=== PATIENT | male | born 1985 | race Two or more races ===

== ENCOUNTER 2020-04-06 20:04 | Emergency (ER) | payer BC ==
[2020-04-06] MEDS ORDERED: Amoxicillin 500 MG Cap PO ONE (20:54)
[2020-04-06 20:58] LABS: BLOOD UREA NITROGEN,BUN 13 mg/dL (7.0-18.0); CARBON DIOXIDE,CO2 29.6 mmol/L (21.0-32.0); CHLORIDE,CL 103 mmol/L (98-107); GLUCOSE RANDOM 86 mg/dL (74-106); POTASSIUM,K 3.8 mmol/L (3.5-5.1); SODIUM,NA 142 mmol/L (136-148)
--- NOTE | 2020-04-06 21:02 | EDM.PDOC ---
ED HPI GENERAL MEDICAL PROBLEM - General Chief Complaint: Gastrointestinal Problem Stated Complaint: SICK/abdpain/vomiting blood Time Seen by Provider: 04/06/20 20:13 - History of Present Illness INITIAL COMMENTS - FREE TEXT/NARRATIVE: CHIEF COMPLAINT(S): Abdominal pain HISTORY OF PRESENT ILLNESS: This is a 35-year-old man without any significant past medical history who comes to the emergency department with a chief complai nt of abdominal pain. The patient is Icelandic-speaking however is able to speak Turkish and patient's girlfriend is at bedside. Patient states that off and on for approximately 1-1/2 years he has been experiencing abdominal pain located in the right lower quadrant which he describes as sharp. He states that the pain is worse after eating spicy red food or greasy food and feels like he gets bloat ed. He states that he is also experiencing reflux symptoms in his throat which he describes as burning. He denies any chest pain or shortness of breath. He denies any diaphoresis. He rates his pain currently is 0 out of 10 but when it happens its approximately 5 out of 10. He states that he did have one episode of vomiting this morning during brushing his teeth and he had streaks of red blood in it. He denies any latisha hematemesis, hemoptysis, hematochezia, melena. He states that he has not had any vomiting since that time. He states that he has been able to tolerate p.o. Of note: He states that he had a endoscopy and [place] and never found out the results. They did call the primary care physician here in [place] today and they did get the records from [place] which showed that the patient had H. pylori. He states that he was never treated for this. He denies any other symptoms. REVIEW OF SYSTEMS: Constitutional: Denies fever, chills. Eyes: Denies eye pain Ears, Nose, Mouth, & Throat: Denies earache Cardiovascular: Denies chest pain Respiratory: Denies shortness of breath Gastrointestinal: Positive for intermittent right lower quadrant abdominal pain, one episode of vomiting. Denies hematochezia, hematemesis, bilious emesis, melena Genitourinary: Denies hematuria Skin:Denies a rash Neurological: Denies blurred vision Psychiatric: Denies depression PAST MEDICAL HISTORY: As per history of present illness and as reviewed below otherwise noncontributory. SURGICAL HISTORY: As per history of present illness and as reviewed below otherwise noncontributory. SOCIAL HISTORY: As per history of present illness and as reviewed below otherwise noncontributory. FAMILY HISTORY: As per history of present illness and as reviewed below otherwise noncontributory. EXAMINATION OF ORGAN SYSTEMS/BODY AREAS: Constitutional: Blood pressure was 159/76, heart rate 104, respiratory rate 16 with an oxygen saturation 98% on room air. Temperature 35.7 General: Overall well-appearing man who is in no acute distress Psychiatric: Appropriate mood and affect. Eyes: No scleral icterus or conjunctival erythema conjunctiva has not pale ENMT: Moist mucous membranes. No pharyngeal erythema mucous membranes are not pale. Cardiovascular: Regular, rate, and rythym. No gallops, murmurs, or rubs. Bilateral upper extremity pulses symmetric and intact. No peripheral edema. No JVD. Respiratory: Lungs clear to auscultation bilaterally. No wheezes, rales, or rhonchi. Gastrointestinal: Soft, nondistended, minimal tenderness in the left lower quadrant and right lower quadrant. No rebound or guarding. Normoactive bowel sounds Genitourinary: No suprapubic tenderness Musculoskeletal: Normal range of motion. Skin: No lesions or abrasions. Neurological: Alert, GCS 15 MEDICAL DECISION MAKING AND COURSE IN THE ED WITH INTERPRETATION/REVIEW OF DIAGNOSTIC STUDIES: This is a 35-year-old man who was evaluated approximately 1 to 1-1/2 years ago with endoscopy showing H. pylori who is untreated who comes to the emergency department with one episode of vomiting with streaks of red blood with an examination revealing right lower quadrant and left lower quadrant minimal tenderness who is mildly tachycardic but overall appears well. At this time the location of his pain does not seem congruent with peptic ulcer disease or H. pylori. Patient denied any melena or hematochezia and no latisha hematemesis. We will obtain a CT abdomen pelvis to evaluate for appendicitis versus diverticulitis versus diverticulosis. Will obtain basic labs including CBC and CMP. At this time the patient does not report any nausea or pain therefore no medications be administered. We will reevaluate the patient's heart rate. Will encourage p.o. intake. Laboratory: CBC is unremarkable. CMP is unremarkable. The radiological images were viewed by myself along with reading the report from the radiologist. CT abdomen pelvis with IV contrast does not reveal any acute intra-abdominal pathology. There is an incidental 4 mm nodule in the anterior right lobe likely due to intrapulmonary lymph node given the patient's age. After labs and imaging I did discuss with his and patient at bedside regarding our work-up. I did discuss the incidental finding of the pulmonary nodule. I did discuss with him that I had be prescribing treatment for H. pylori and that they needed to complete the 2-week course. I discussed with him that if he were to have worsening abdominal pain, development of blood in stool, or vomiting blood he should return to the emergency department. He was amenable to discharge at this time and had no further questions DISPOSITION: The patient was discharged home in stable condition. The patient will follow up with PCP within 1 week CONDITION: Fair PROCEDURES: None FINAL IMPRESSION(S)/DIAGNOSES: 1. Acute abdominal pain, unknown etiology 2. H. pylori E infection per history 3. Incidental pulmonary nodule Toño Law M.D. Right Middle Abdomen Pain Score (Numeric/FACES): 4 - Related Data Allergies Allergy/AdvReac Type Severity Reaction Status Date / Time No Known Allergies Allergy Verified 04/06/20 20:29 Home Meds: Home Meds Amoxicillin 1,000 mg PO BID 14 Days #56 tab 04/06/20 [Rx] Clarithromycin 500 mg PO BID 14 Days #28 tablet 04/06/20 [Rx] Esomeprazole Magnesium [Nexium 24Hr] 20 mg PO DAILY 04/06/20 [History] Esomeprazole [NexIUM] 40 mg PO BID 14 Days #28 packet 04/06/20 [Rx] Past Medical History Endocrine/Metabolic History: Reports: Diabetes, Type I, Obesity/BMI 30+ Social & Family History - Family History Family Medical History: Noncontributory - Tobacco Use Tobacco Use Status *Q: Never Tobacco User Second Hand Smoke Exposure: No - Recreational Drug Use Recreational Drug Use: No ED ROS GENERAL - Review of Systems Review Of Systems: See Below ED EXAM, GENERAL - Physical Exam Exam: See Below Course - Vital Signs Last Recorded V/S: Last Vital Signs Temp 35.7 C L 04/06/20 20:25 Pulse 79 04/06/20 22:04 Resp 18 04/06/20 22:04 BP 128/86 04/06/20 22:04 Pulse Ox 96 04/06/20 22:04 - Orders/Labs/Meds Labs: Laboratory Tests 04/06/20 04/06/20 Range/Units 20:20 20:30 WBC 10.32 (4.0-11.0) K/uL RBC 5.51 (4.50-5.90) M/uL Hgb 16.9 (13.0-17.0) g/dL Hct 49.3 (38.0-50.0) % MCV 89.5 (80.0-98.0) fL MCH 30.7 (27.0-32.0) pg MCHC 34.3 (31.0-37.0) g/dL RDW Std Deviation 43.7 (28.0-62.0) fl RDW Coeff of Mabel 13 (11.0-15.0) % Plt Count 324 (150-400) K/uL MPV 10.00 (7.40-12.00) fL Neut % (Auto) 44.6 L (48.0-80.0) % Lymph % (Auto) 40.6 H (16.0-40.0) % Harrison % (Auto) 5.9 (0.0-15.0) % Eos % (Auto) 8.5 H (0.0-7.0) % Baso % (Auto) 0.4 (0.0-1.5) % Neut # (Auto) 4.6 (1.4-5.7) K/uL Lymph # (Auto) 4.2 H (0.6-2.4) K/uL Harrison # (Auto) 0.6 (0.0-0.8) K/uL Eos # (Auto) 0.9 H (0.0-0.7) K/uL Baso # (Auto) 0.0 (0.0-0.1) K/uL Nucleated RBC % 0.0 /100WBC Nucleated RBCs # 0 K/uL Sodium 142 (136-148) mmol/L Potassium 3.8 (3.5-5.1) mmol/L Chloride 103 (98-107) mmol/L Carbon Dioxide 29.6 (21.0-32.0) mmol/L BUN 13 (7.0-18.0) mg/dL Creatinine 1.1 (0.8-1.3) mg/dL Est Cr Clr Drug Dosing 89.30 mL/min Estimated GFR (MDRD) > 60.0 ml/min Glucose 86 (74-106) mg/dL Calcium 9.1 (8.5-10.1) mg/dL Total Bilirubin 0.8 (0.2-1.0) mg/dL AST 21 (15-37) IU/L ALT 63 (14-63) IU/L Alkaline Phosphatase 85 (46-116) U/L Total Protein 7.9 (6.4-8.2) g/dL Albumin 4.4 (3.4-5.0) g/dL Globulin 3.5 (2.6-4.0) g/dL Albumin/Globulin Ratio 1.3 (0.9-1.6) Meds: Medications Discontinued Medications Generic Name Dose Route Start Last Admin Trade Name Freq PRN Reason Stop Dose Admin Amoxicillin 1,000 mg 04/06/20 20:54 04/06/20 21:43 Amoxil PO 04/06/20 20:55 1,000 mg ONETIME ONE Administration Clarithromycin 500 mg 04/06/20 20:55 04/06/20 21:43 Biaxin PO 04/06/20 20:56 500 mg ONETIME STA Administration Iopamidol 100 ml 04/06/20 21:30 04/06/20 21:31 Isovue-370 (76%) IVPUSH 04/06/20 21:31 100 ml ONETIME STA Administration Departure - Departure Time of Disposition: 22:44 Disposition: Home, Self-Care 01 Condition: Fair Clinical Impression: Pulmonary nodule, H. pylori infection - Discharge Information *PRESCRIPTION DRUG MONITORING PROGRAM REVIEWED*: No *COPY OF PRESCRIPTION DRUG MONITORING REPORT IN PATIENT JORGE LUIS: No Prescriptions: Amoxicillin 1,000 mg PO BID 14 Days #56 tab Clarithromycin 500 mg PO BID 14 Days #28 tablet Esomeprazole [NexIUM] 40 mg PO BID 14 Days #28 packet Instructions: Helicobacter Pylori Infection, Antibiotic Medicine, Adult, Pulmonary Nodule, [id number] Referrals: Xander Hoffmann MD [Primary Care Provider] - Forms: ED Department Discharge Additional Instructions: The patient is informed of any results of their evaluation and diagnostic workup and all questions are answered. They are given discharge instructions and return precautions. The patient is stable for discharge. The patient states they understand and agree with the plan and that they will return if their symptoms get worse or if they have any new concerns. The following information is given to patients seen in the emergency department who are being discharged to home. This information is to outline your options for follow-up care. We provide all patients seen in our emergency department with a follow-up referral. The need for follow-up, as well as the timing and circumstances, are variable depending upon the specifics of your emergency department visit. If you don't have a primary care physician on staff, we will provide you with a referral. We always advise you to contact your personal physician following an emergency department visit to inform them of the circumstance of the visit and for follow-up with them and/or the need for any referrals to a consulting specialist. The emergency department will also refer you to a specialist when appropriate. This referral assures that you have the opportunity for follow-up care with a specialist. All of these measure are taken in an effort to provide you with optimal care, which includes your follow-up. Under all circumstances we always encourage you to contact your private physician who remains a resource for coordinating your care. When calling for follow-up care, please make the office aware that this follow-up is from your recent emergency room visit. If for any reason you are refused follow-up, please contact the [facility] Emergency Department at and asked to speak to the emergency department charge nurse. PLEASE COMPLETE ALL MEDICATIONS FOR H. PYLORI. IT IS A TWO WEEK COURSE. Amoxicillin 1000mg (2 Tablets) two times a day Clarithromycin 500mg (1 Tablet) two times a day Esomeprazole (Nexium) (1 packet) two times a day YOU WILL NEED TO BE RETESTED AFTER COMPLETING ALL THE ANTIBIOTICS, PLEASE FOLLOW UP WITH YOU DOCTOR ON YOUR CAT SCAN THERE WAS A 4mm RIGHT LUNG NODULE. YOU WILL NEED TO FOLLOW UP WITH YOUR DOCTOR REGARDING THIS FINDING SO THAT IT CAN BE MONITORED RETURN TO EMERGENCY DEPARTMENT IF YOU HAVE WORSENING ABDOMINAL PAIN, BLOOD IN YOUR STOOL (RED/BLACK LIKE TAR), OR VOMITING BLOOD (RED/BLACK LIKE COFFEE GROUNDS) Sepsis Event Note (ED) - Evaluation Sepsis Screening Result: No Definite Risk - Focused Exam Vital Signs: Vital Signs Temp Pulse Resp BP Pulse Ox 04/06/20 22:04 79 18 128/86 96 04/06/20 21:54 89 18 136/85 99 04/06/20 20:25 35.7 C L 104 H 16 159/76 H 98
[2020-04-06] MEDS ORDERED: Iopamidol 755 Mg/ML 100 ML Bottle IVPUSH STA (21:30)
--- NOTE | 2020-04-06 22:26 | CT ---
INDICATION: Right lower quadrant, left lower quadrant pain TECHNIQUE: CT Abdomen and pelvis with i.v. contrast. Coronal and sagittal reformats were obtained. CONTRAST: 100 mL Isovue 370 COMPARISON: None FINDINGS: Lower chest: There is a 4 mm nodule in anterior right lower lobe, abutting the major fissure on image 9. This is likely due to an intrapulmonary lymph node given the patient`s age. Liver: Unremarkable. Spleen: Unremarkable. Pancreas: Unremarkable. Gallbladder: Unremarkable. Kidney: Unremarkable. No kidney or ureteral stones or obstruction seen. Adrenal: Unremarkable. Bowel: Unremarkable. The appendix is normal in appearance and size. 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 Lymph: See above. Peritoneum: Unremarkable. No pneumoperitoneum is seen. No significant ascites is noted. Pelvis: Unremarkable. Soft tissue: Unremarkable. Bone: Unremarkable for age. IMPRESSION: 1. Unremarkable with no CT correlate for the patient`s symptoms seen. Dictated by Andrew Poe MD @ 04/06/2020 10:25:18 PM Please note that all CT scans at this facility use dose modulation, iterative reconstruction, and/or weight-based dosing when appropriate to reduce radiation dose to as low as reasonably achievable. Dictated by: Andrew Poe MD @ 04/06/2020 22:25:21 (Electronically Signed)
== END 2020-04-06 23:05 | disposition home or self-care (01) ==
LOC: MW.ED 20:04
DX: A04.8 Other specified bacterial intestinal infections (principal); R91.1 Solitary pulmonary nodule; R00.0 Tachycardia, unspecified; E10.9 Type 1 diabetes mellitus without complications; E66.9 Obesity, unspecified; Z68.32 Body mass index [BMI] 32.0-32.9, adult; Z79.899 Other long term (current) drug therapy
CPT/HCPCS: 36415; 74177; 80053; 85025; 99284; A9270; Q9967

== ENCOUNTER 2021-02-08 20:46 | Emergency (ER) | payer BC ==
[2021-02-08] MEDS ORDERED: Pantoprazole 40 MG Tab.CR PO STA (21:12)
[2021-02-08] MEDS ORDERED: Baclofen 10 MG Tab PO ONE (21:13)
--- NOTE | 2021-02-08 21:16 | EDM.PDOC ---
ED HPI GENERAL MEDICAL PROBLEM - General Chief Complaint: General Stated Complaint: HICCUPS FOR 5 DAYS Time Seen by Provider: 02/08/21 20:58 - History of Present Illness INITIAL COMMENTS - FREE TEXT/NARRATIVE: History of present illness: [] This patient is bothered by frequent hiccups throughout the day for 5 days. He is able to sleep. When he wakes up it is worse in the morning. He has been treated in the past with Nexium for gastroesophageal reflux disease. He is otherwise healthy. He is under a lot of stress currently. He does not have any other reason why he would suffer hiccups. He is not taking his Nexium on a regular basis and not even once a day. Review of systems: As per history of present illness and below otherwise all systems reviewed and negative. Past medical history: As per history of present illness and as reviewed below otherwise noncontributory. Surgical history: As per history of present illness and as reviewed below otherwise noncontributory. Social history: No reported history of drug or alcohol abuse. Family history: As per history of present illness and as reviewed below otherwise noncontributory. Physical exam: Constitutional - well developed, well-nourished and in no acute distress HEENT -frequent hiccups-normocephalic, no evidence of trauma - external nose and mouth normal - no mass in neck and no JVD - mucosae moist EYES - full EOM, PERRL, no icterus - no evidence of inflammation, injection, or drainage Respiratory - no respiratory distress, equal bilateral expansion, lungs clear to auscultation and no abnormal lung sounds Cardiovascular - Regular Rhythm with S1 and S2 appreciated and no murmur, gallop or rub. GI - abdomen soft without distension or organomegaly - normal bowel sounds - no guard or rebound Musculoskeletal no gross deformity of long bones or joints - no tenderness, swelling or edema Neurologic - Alert and oriented times four - CN II-XII grossly intact - motor sensory and coordination symmetrically normal Psychiatric - appropriate mood and affect with normal thought content Hematologic - No petechiae or purpura - mucosa appropriate color and sclera not pale - normal nail bed color and refill Integument - no rash or evidence of trauma - normal turgor Diagnostics: [] Therapeutics: [] Impression: [] Plan: [] Definitive disposition and diagnosis as appropriate pending reevaluation and review of above. hiccup Pain Score (Numeric/FACES): 6 - Related Data Allergies Allergy/AdvReac Type Severity Reaction Status Date / Time No Known Allergies Allergy Verified 02/08/21 20:53 Home Meds: Home Meds Esomeprazole [NexIUM] 40 mg PO BID 14 Days #28 packet 04/06/20 [Rx] Baclofen 10 mg PO TID 7 Days #21 tablet 02/08/21 [Rx] Past Medical History - Past Health History Medical/Surgical History: Denies Medical/Surgical History Endocrine/Metabolic History: Reports: Diabetes, Type I, Obesity/BMI 30+ Social & Family History - Family History Family Medical History: No Pertinent Family History - Tobacco Use Tobacco Use Status *Q: Never Tobacco User - Recreational Drug Use Recreational Drug Use: No ED ROS GENERAL - Review of Systems Review Of Systems: Comprehensive ROS is negative, except as noted in HPI. ED EXAM, GENERAL - Physical Exam Exam: See Below Free Text/Narrative:: My physical exam as in the HPI Course - Vital Signs Last Recorded V/S: Last Vital Signs Temp 36.6 C 02/08/21 20:54 Pulse 98 02/08/21 20:54 Resp 18 02/08/21 20:54 BP 152/106 H 02/08/21 20:54 Pulse Ox 97 02/08/21 20:54 - Orders/Labs/Meds Labs: Laboratory Tests 02/08/21 02/08/21 Range/Units 21:37 21:37 WBC 9.41 (4.0-11.0) K/uL RBC 5.10 (4.50-5.90) M/uL Hgb 15.8 (13.0-17.0) g/dL Hct 44.8 (38.0-50.0) % MCV 87.8 (80.0-98.0) fL MCH 31.0 (27.0-32.0) pg MCHC 35.3 (31.0-37.0) g/dL RDW Std Deviation 44.0 (28.0-62.0) fl RDW Coeff of Mabel 14 (11.0-15.0) % Plt Count 329 (150-400) K/uL MPV 9.80 (7.40-12.00) fL Neut % (Auto) 41.8 L (48.0-80.0) % Lymph % (Auto) 47.5 H (16.0-40.0) % Maury % (Auto) 8.2 (0.0-15.0) % Eos % (Auto) 2.1 (0.0-7.0) % Baso % (Auto) 0.4 (0.0-1.5) % Neut # (Auto) 3.9 (1.4-5.7) K/uL Lymph # (Auto) 4.5 H (0.6-2.4) K/uL Maury # (Auto) 0.8 (0.0-0.8) K/uL Eos # (Auto) 0.2 (0.0-0.7) K/uL Baso # (Auto) 0.0 (0.0-0.1) K/uL Nucleated RBC % 0.0 /100WBC Nucleated RBCs # 0 K/uL Sodium 140 (136-148) mmol/L Potassium 3.8 (3.5-5.1) mmol/L Chloride 102 (98-107) mmol/L Carbon Dioxide 28.0 (21.0-32.0) mmol/L BUN 17 (7.0-18.0) mg/dL Creatinine 1.0 (0.8-1.3) mg/dL Est Cr Clr Drug Dosing 100.70 mL/min Estimated GFR (MDRD) > 60.0 ml/min Glucose 89 (74-106) mg/dL Calcium 8.9 (8.5-10.1) mg/dL Magnesium 2.5 H (1.8-2.4) mg/dL Total Bilirubin 0.5 (0.2-1.0) mg/dL AST 23 (15-37) IU/L ALT 66 H (14-63) IU/L Alkaline Phosphatase 83 (46-116) U/L Total Protein 7.4 (6.4-8.2) g/dL Albumin 4.4 (3.4-5.0) g/dL Globulin 3.0 (2.6-4.0) g/dL Albumin/Globulin Ratio 1.5 (0.9-1.6) Lipase 127 (73-393) U/L Meds: Medications Discontinued Medications Generic Name Dose Route Start Last Admin Trade Name Freq PRN Reason Stop Dose Admin Baclofen 10 mg 02/08/21 21:13 02/08/21 21:44 Baclofen 10 Mg Tab PO 02/08/21 21:14 10 mg ONETIME ONE Administration Pantoprazole Sodium 40 mg 02/08/21 21:12 02/08/21 21:23 Pantoprazole 40 Mg Tab.Cr PO 02/08/21 21:13 40 mg STAT STA Administration Departure - Departure Time of Disposition: 22:32 Disposition: Home, Self-Care 01 Condition: Good Clinical Impression: Hiccups - Discharge Information Prescriptions: Baclofen 10 mg PO TID 7 Days #21 tablet Referrals: PCP,None [Primary Care Provider] - Forms: ED Department Discharge Additional Instructions: Make an appointment right away with [facility]. Try sucking on a thick milkshake or gentle massage of her eyes, get rid of your stress, follow-up with family practice if not completely better within 7 days. [facility] [address] [place] [address] [place] [address] The following information is given to patients seen in the emergency department who are being discharged to home. This information is to outline your options for follow-up care. We provide all patients seen in our emergency department with a follow-up referral. The need for follow-up, as well as the timing and circumstances, are variable depending upon the specifics of your emergency department visit. If you don't have a primary care physician on staff, we will provide you with a referral. We always advise you to contact your personal physician following an emergency department visit to inform them of the circumstance of the visit and for follow-up with them and/or the need for any referrals to a consulting specialist. The emergency department will also refer you to a specialist when appropriate. This referral assures that you have the opportunity for follow-up care with a specialist. All of these measure are taken in an effort to provide you with optimal care, which includes your follow-up. Under all circumstances we always encourage you to contact your private physician who remains a resource for coordinating your care. When calling for follow-up care, please make the office aware that this follow-up is from your recent emergency room visit. If for any reason you are refused follow-up, please contact the [facility] Emergency Department at and asked to speak to the emergency department charge nurse. Sepsis Event Note (ED) - Evaluation Sepsis Screening Result: No Definite Risk - Focused Exam Vital Signs: Vital Signs Temp Pulse Resp BP Pulse Ox 02/08/21 20:54 36.6 C 98 18 152/106 H 97
--- NOTE | 2021-02-08 21:43 | CR ---
INDICATION: no prior. 2 images. prolonged hiccups TECHNIQUE: Chest 2 views. COMPARISON: None. FINDINGS: Cardiovascular and mediastinum: Heart size and vasculature are normal in caliber and appearance. Mediastinum is within normal limits. Lungs and pleural spaces: Lungs are clear. No sign of infiltrate or mass. No sign of pleural effusion. No pneumothorax. Bones and soft tissues: No significant findings. IMPRESSION: Unremarkable chest. Dictated by: Fran Holloway MD @ 02/08/2021 21:42:16 (Electronically Signed)
[2021-02-08 22:11] LABS: BLOOD UREA NITROGEN,BUN 17 mg/dL (7.0-18.0); CHLORIDE,CL 102 mmol/L (98-107); GLUCOSE RANDOM 89 mg/dL (74-106); LIPASE 127 U/L (73-393); POTASSIUM,K 3.8 mmol/L (3.5-5.1); SODIUM,NA 140 mmol/L (136-148)
== END 2021-02-08 22:47 | disposition home or self-care (01) ==
LOC: MW.ED 20:46
DX: R06.6 Hiccough (principal); E10.9 Type 1 diabetes mellitus without complications; E66.9 Obesity, unspecified; Z68.38 Body mass index [BMI] 38.0-38.9, adult; Z79.899 Other long term (current) drug therapy
CPT/HCPCS: 36415; 71046; 80053; 83690; 83735; 85025; 99283; A9270

== ENCOUNTER 2021-03-19 20:46 | Emergency (ER) | payer BC ==
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
== END 2021-03-19 23:30 | disposition home or self-care (01) ==
LOC: MW.ED 20:46
DX: S09.90XA Unspecified injury of head, initial encounter (principal); S39.012A Strain of muscle, fascia and tendon of lower back, initial encounter; S16.1XXA Strain of muscle, fascia and tendon at neck level, initial encounter; K21.9 Gastro-esophageal reflux disease without esophagitis; E10.9 Type 1 diabetes mellitus without complications; E66.9 Obesity, unspecified; Z68.32 Body mass index [BMI] 32.0-32.9, adult; Z79.899 Other long term (current) drug therapy; W22.8XXA Striking against or struck by other objects, initial encounter
CPT/HCPCS: 70450; 70450-26; 72125; 72125-26; 99283-25

== ENCOUNTER 2021-06-12 09:53 | Emergency (ER) | payer BC ==
--- NOTE | 2021-06-12 10:40 | EDM.PDOC ---
ED HPI GENERAL MEDICAL PROBLEM - General Chief Complaint: ENT Problem Stated Complaint: UNSURE Time Seen by Provider: 06/12/21 09:55 Source of Information: Reports: Patient History Limitations: Reports: No Limitations - History of Present Illness INITIAL COMMENTS - FREE TEXT/NARRATIVE: Patient is a 36-year-old male no past medical history presents today for throat pain. Patient son tested positive for strep throat and he is here with the other family members as well for similar symptoms. Is able to eat swallow and drink has no shortness of breath cough or other complaints. Throat Pain Score (Numeric/FACES): 4 - Related Data Allergies Allergy/AdvReac Type Severity Reaction Status Date / Time No Known Allergies Allergy Verified 06/12/21 10:22 Home Meds: Home Meds Esomeprazole [NexIUM] 40 mg PO BID 14 Days #28 packet 04/06/20 [Rx] Past Medical History - Past Health History Medical/Surgical History: Denies Medical/Surgical History Gastrointestinal History: Reports: GERD Psychiatric History: Reports: Anxiety Endocrine/Metabolic History: Reports: Diabetes, Type I, Obesity/BMI 30+ - Infectious Disease History Infectious Disease History: Reports: Chicken Pox - Past Surgical History GI Surgical History: Reports: Other (See Below) Other GI Surgeries/Procedures: endoscopy Dermatological Surgical History: Reports: Plastic Surgical Reconstruction/Repair Social & Family History - Family History Family Medical History: No Pertinent Family History Endocrine/Metabolic: Reports: Diabetes, Type I - Caffeine Use Caffeine Use: Reports: Coffee - Recreational Drug Use Recreational Drug Use: No ED ROS ENT - Review of Systems Review Of Systems: See Below Constitutional: Reports: No Symptoms HEENT: Reports: Throat Pain Respiratory: Reports: No Symptoms Endocrine: Reports: No Symptoms GI/Abdominal: Reports: No Symptoms : Reports: No Symptoms Musculoskeletal: Reports: No Symptoms Skin: Reports: No Symptoms Neurological: Reports: No Symptoms Psychiatric: Reports: No Symptoms Hematologic/Lymphatic: Reports: No Symptoms Immunologic: Reports: No Symptoms ED EXAM, ENT - Physical Exam Exam: See Below Exam Limited By: No Limitations General Appearance: Alert, WD/WN, No Apparent Distress Mouth/Throat: Normal Inspection, Normal Gums, Normal Oropharynx Neck: Normal Inspection Respiratory/Chest: No Respiratory Distress, Lungs Clear Cardiovascular: Normal Peripheral Pulses Neurological: Alert, Oriented Course - Vital Signs Last Recorded V/S: Last Vital Signs Temp 97.3 F 06/12/21 10:22 Pulse 94 06/12/21 10:22 Resp 18 06/12/21 10:22 BP 141/92 H 06/12/21 10:22 Pulse Ox 97 06/12/21 10:22 - Orders/Labs/Meds Labs: Laboratory Tests 06/12/21 Range/Units 10:50 Group A Strep (PCR) NOT DETECTED (NOT DETECT) Departure - Departure Time of Disposition: 11:33 Disposition: Home, Self-Care 01 Condition: Good Clinical Impression: Viral pharyngitis - Discharge Information *PRESCRIPTION DRUG MONITORING PROGRAM REVIEWED*: Not Applicable *COPY OF PRESCRIPTION DRUG MONITORING REPORT IN PATIENT JORGE LUIS: Not Applicable Instructions: Pharyngitis Referrals: Xander Hoffmann MD [Primary Care Provider] - Forms: ED Department Discharge Additional Instructions: Your strep test was negative today you likely have a viral throat infection recommend continue try [id number] medication and follow with your primary care physician. The following information is given to patients seen in the emergency department who are being discharged to home. This information is to outline your options for follow-up care. We provide all patients seen in our emergency department wi th a follow-up referral. The need for follow-up, as well as the timing and circumstances, are variable depending upon the specifics of your emergency department visit. If you don't have a primary care physician on staff, we will provide you with a referral. We always advise you to contact your personal physician following an emergency department visit to inform them of the circumstance of the visit and for follow-up with them and/or the need for any referrals to a consulting specialist. The emergency department will also refer you to a specialist when appropriate. This referral assures that you have the opportunity for follow-up care with a specialist. All of these measure are taken in an effort to provide you with optimal care, which includes your follow-up. Under all circumstances we always encourage you to contact your private physician who remains a resource for coordinating your care. When calling for follow-up care, please make the office aware that this follow-up is from your recent emergency room visit. If for any reason you are refused follow-up, please contact the [facility] Emergency Department at and asked to speak to the emergency department charge nurse. Please follow up with your primary care physician. If you do not have a primary care physician, see below: [facility] [address] [place] [address] [facility] [address] [place] [address] Sepsis Event Note (ED) - Evaluation Sepsis Screening Result: No Definite Risk - Focused Exam Vital Signs: Vital Signs Temp Pulse Resp BP Pulse Ox 06/12/21 10:22 97.3 F 94 18 141/92 H 97 - Assessment/Plan Plan: Patient is a 36-year-old male brought in today for sore throat. Patient on exam has no exudate but does have some tenderness and lymphadenopathy. Will obtain a strep swab and reassess.
== END 2021-06-12 12:08 | disposition home or self-care (01) ==
LOC: MW.ED 09:53
DX: J02.8 Acute pharyngitis due to other specified organisms (principal); E10.9 Type 1 diabetes mellitus without complications; K21.9 Gastro-esophageal reflux disease without esophagitis; E66.9 Obesity, unspecified; Z68.36 Body mass index [BMI] 36.0-36.9, adult
CPT/HCPCS: 87651-QW; 99283

== ENCOUNTER 2022-05-03 22:01 | Emergency (ER) | payer BC ==
[2022-05-03] MEDS ORDERED: Sodium Chloride 0.9% 1,000 ML IV ONE (23:08)
[2022-05-03] MEDS ORDERED: Ketorolac 30 MG/ML SDV IVPUSH ONE (23:13)
[2022-05-03 23:55] LABS: CARBON DIOXIDE,CO2 27.6 mmol/L (21.0-32.0); POTASSIUM,K 3.6 mmol/L (3.5-5.1)
[2022-05-04] MEDS ORDERED: Acetaminophen/oxyCODONE 325-5 MG Tab PO ONE (00:18)
== END 2022-05-04 00:35 | disposition home or self-care (01) ==
LOC: MW.ED 22:01
DX: N20.0 Calculus of kidney (principal); E10.9 Type 1 diabetes mellitus without complications; E66.9 Obesity, unspecified; Z68.41 Body mass index [BMI] 40.0-44.9, adult; Z79.899 Other long term (current) drug therapy
CPT/HCPCS: 36415; 74176; 80053; 81001; 85025; 96374; 99284; A9270; J1885; J7030

== ENCOUNTER 2024-11-22 22:42 | Emergency (ER) | payer BC, OTHER ==
[2024-11-22] MEDS: ceFAZolin 1 GM in Water For Injection, Sterile 10 ML IVPUSH ONE (23:47)
[2024-11-22] MEDS: Diphtheria,Pertussis(Acell),Tetanus Vaccine 0.5 ML Syringe IM ONE (23:47)
[2024-11-23 00:15] LABS: BASOPHILS ABSOLUTE AUTO 0.04 K/uL (0.00-0.20); BASOPHILS PERCENT AUTO 0.4 % (0.0-1.0); EOSINOPHILS ABSOLUTE AUTO 0.22 K/uL (0.00-0.45); EOSINOPHILS PERCENT AUTO 2.4 % (0.0-6.0); HEMATOCRIT 43.2 % (42.0-52.0); HEMOGLOBIN 14.9 g/dL (14.0-18.0); IMMATURE GRAN ABSOLUTE AUTO 0.05 K/uL (0.00-0.05); IMMATURE GRAN PERCENT AUTO 0.5 % (0.0-0.4); LYMPHOCYTES ABSOLUTE AUTO 2.94 K/uL (1.00-4.80); LYMPHOCYTES PERCENT AUTO 31.8 % (24.0-44.0); MEAN CORPUSCULAR HEMOGLOBIN 30.3 pg (28.0-32.0); MEAN CORPUSCULAR HGB CONC 34.5 g/dL (32.0-36.0); MEAN PLATELET VOLUME 9.8 fL (9.4-12.4); MONOCYTES ABSOLUTE AUTO 0.84 K/uL (0.00-0.80); MONOCYTES PERCENT AUTO 9.1 % (0.0-8.0); NEUTROPHILS ABSOLUTE AUTO 5.15 K/uL (1.80-7.70); NEUTROPHILS PERCENT AUTO 55.8 % (41.0-71.0); PLATELET COUNT,PLT 231 K/uL (150-400); RED BLOOD CELL COUNT 4.91 M/uL (4.52-5.90); WHITE BLOOD CELL COUNT,WBC 9.24 K/uL (3.9-11.3)
[2024-11-23 00:25] LABS: INR 1.04 (0.86-1.11)
[2024-11-23 00:31] LABS: CALCIUM 8.5 mg/dL (8.5-10.1); CARBON DIOXIDE,CO2 29.5 mmol/L (21.0-32.0); CREATININE 1.1 mg/dL (0.8-1.3); EST CRCL DRUG DOSING (CG) 79.98 mL/min; POTASSIUM,K 3.4 mmol/L (3.5-5.1)
[2024-11-23] MEDS: Potassium Chloride 10% 20 MEQ/15 ML Soln 15 ML UD Cup PO ONE (01:28)
== END 2024-11-23 01:36 | disposition home or self-care (01) ==
LOC: MW.ED 22:42
DX: L03.311 Cellulitis of abdominal wall (principal); Z23 Encounter for immunization; E66.9 Obesity, unspecified; Z79.899 Other long term (current) drug therapy; Z68.39 Body mass index [BMI] 39.0-39.9, adult
CPT/HCPCS: 36415; 80048; 82550; 85025; 85610; 90471; 90715; 96374; 99283; A9270; J0690